=== PATIENT | female | born 1950 | race Caucasian/White ===

== ENCOUNTER 2017-03-20 11:37 | Emergency (ER) | payer MEDICARE ==
[~2017-03-20] VITALS: Ht 157.5 cm; Wt 100.0 kg
[~2017-03-20 11:37] MED LIST: AMOXICILLIN875 MG PO; AUGMENTIN875TAB PO; CHERATUSSIN OR; CIPROFLOXACN500 MG PO; FLORASTOR250 M1 PO; LEXAPRO20 MG PO; MECLIZINE25 MG PO; MEDDOSEPAK PO; PYRIDIUM200 MG; PYRIDIUM200 MG PO; TESSALON200 MG PO; TRAZODONE HCL150 MG; TRAZODONE150 MG PO; TRAZODONE50 MG PO; VALIUM5 MG; VALIUM5 MG PO; VOSOL2 % AS; ZITHROMAX500 MG PO; ZYRTEC-D AL1 OR
[2017-03-20] MEDS ORDERED: ALLERGY10 M1 PO (12:31)
[2017-03-20 12:59] LABS: URINE BILIRUBIN - DIPSTICK NEGATIVE (NEGATIVE); URINE BLOOD DIPSTICK NEGATIVE (NEGATIVE); URINE CLARITY CLEAR; URINE COLOR YELLOW; URINE GLUCOSE - DIPSTICK >=1000 mg/dL (NEGATIVE); URINE KETONE NEGATIVE (NEGATIVE); URINE LEUK ESTERASE TRACE (Negative); URINE NITRITE - DIPSTICK NEGATIVE (Negative); URINE PH 5.5 (4.5-8.0); URINE PROTEIN - DIPSTICK NEGATIVE (NEG-TRACE); URINE SPECIFIC GRAVITY <=1.005; URINE UROBILINOGEN - DIPSTICK 0.2 E.U./dL (0.2)
[2017-03-20 13:21] LABS: HEMATOCRIT 42.8 % (37.0-47.0); HEMOGLOBIN 14.2 g/dl (12.0-16.0); IMMATURE GRANULOCYTES 0.3 % (0.0-1.0); MEAN CELL VOLUME 91.5 fL CALC (80.0-100.0); MEAN CORPUSCULAR HGB 30.3 pG CALC (26.0-32.0); MEAN CORPUSCULAR HGB CONC 33.2 g/L CALC (32.0-36.0); NEUT# 7.91 thou/uL (2.00-7.15); RED BLOOD COUNT 4.68 mill/uL (4.20-5.60); RED CELL DISTRI WIDTH 12.7 % (11.5-15.5)
[2017-03-20 13:35] LABS: ALBUMIN 4.4 g/dL (3.2-5.0); ALKALINE PHOSPHATASE 121 u/l (38-126); ANION GAP 16 (6-22 (CALC)); BUN 7 mg/dL (8-23); BUN/CREATININE RATIO 10 (12-20 (CALC)); CARBON DIOXIDE 28 mmol/l (22-30); CHLORIDE 102 mmol/l (95-108); CREATININE 0.7 mg/dL (0.5-1.0); GFR > 60 ML/MIN (>=60 (CALC)); GFR FOR AFR.AMER. > 60 ML/MIN (>=60 (CALC)); GLUCOSE 240 mg/dL (82-115); LIPASE 188 u/l (23-300); POTASSIUM 4.8 mmol/l (3.5-5.1); SGOT/AST 78 u/l (9-36); SGPT/ALT 64 u/l (11-66); SODIUM 141 mmol/l (137-146); TOTAL PROTEIN 7.8 g/dL (6.3-8.2)
[2017-03-20] MEDS ORDERED: METFORMIN HCL1000 MG PO (14:00)
[2017-03-20] MEDS ORDERED: PERCOCET 5/325M1 TAB PO (14:01)
[2017-03-20 14:05] VITALS: BP 119/74
== END 2017-03-20 14:05 | disposition home or self-care (01) ==
LOC: ED 11:37
PROVIDERS: Emergency Medicine
DX: M54.5 Low back pain (principal); E11.9 Type 2 diabetes mellitus without complications; R11.0 Nausea; X50.1XXA Overexertion from prolonged static or awkward postures, initial encounter; Y93.89 Activity, other specified; Y92.009 Unspecified place in unspecified non-institutional (private) residence as the place of occurrence of the external cause

== ENCOUNTER 2020-08-10 18:19 | Emergency (ER) | payer MEDICARE ==
[~2020-08-10] VITALS: Ht 157.5 cm; Wt 85.0 kg
[~2020-08-10 18:19] MED LIST changes: +ALLERGY10 M1 PO; +METFORMIN HCL1000 MG PO; +PERCOCET 5/325M1 TAB PO
[2020-08-10] MEDS ORDERED: METFORMIN500 M2 PO (18:31)
[2020-08-10] MEDS ORDERED: TRAMADOL HYDROC50 M1 PO (19:38)
[2020-08-10 19:45] VITALS: BP 159/74
== END 2020-08-10 19:45 | disposition home or self-care (01) ==
LOC: ED 18:19
PROC: 2W3QX1Z Immobilization of Right Lower Leg using Splint (ICD-10-PCS; principal; 2020-08-10)
DX: S82.61XA Displaced fracture of lateral malleolus of right fibula, initial encounter for closed fracture (principal); X50.0XXA Overexertion from strenuous movement or load, initial encounter; Y92.009 Unspecified place in unspecified non-institutional (private) residence as the place of occurrence of the external cause